=== PATIENT | male | born 1930 | race Caucasian/White ===

== ENCOUNTER → 2017-09-19 | Outpatient (CLI) | payer OTHER ==
[~2017-09-19] VITALS: Ht 172.7 cm; Wt 87.1 kg
[~2017-09-19] MED LIST: ACCUNEB SO1.25 MG/1 INH; FLOMAX0.4 MG PO; GLUCOTROL5 MG PO; HYDROCHLOROTHIA25 M1 PO; LISINOPRIL5 MG PO; OSTERA TABLET1 EAC1 PO; SYMBICORT160 MCG/4. INH; VITAMIN E400 UNIT PO
[2017-09-19 09:34] VITALS: BP 144/88
[2017-09-19 10:58] LABS: HEMATOCRIT 42.5 % (42.0-52.0); HEMOGLOBIN 14.4 gm/dL (14.0-18.0); MCH 31.4 pg (26.0-34.0); MCHC 33.8 g/dL (28.0-37.0); RBC 4.57 mil/uL (4.50-6.00); RDW 13.6 % (10.5-14.5)
[2017-09-19 11:19] LABS: ALBUMIN 3.8 g/dL (3.4-5.0); CALCIUM 9.5 mg/dL (8.5-10.1); CREATININE 1.3 mg/dL (0.7-1.3); MAGNESIUM 2.1 mg/dL (1.8-2.4); POTASSIUM 4.7 mmol/L (3.5-5.1); TOTAL BILIRUBIN 0.4 mg/dL (<0.1-1.0); TOTAL PROTEIN 7.7 g/dL (6.4-8.2)
[2017-09-19 11:46] LABS: TSH 3.429 uIU/mL (0.358-3.740)
[2017-09-20 02:11] LABS: GLYCOHEMOGLOBIN (HGB A1C) 6.1 % (4.8-5.6)
== END ==
LOC: SEN 08:32
PROVIDERS: Registered Nurse
DX: I10 Essential (primary) hypertension (principal); L30.9 Dermatitis, unspecified; E11.9 Type 2 diabetes mellitus without complications; J44.9 Chronic obstructive pulmonary disease, unspecified